=== PATIENT | female | born 1950 | race Caucasian/White ===

== ENCOUNTER 2016-08-16 09:51 | Inpatient (IN) | payer OTHER ==
[~2016-08-16] VITALS: Ht 162.6 cm; Wt 100.0 kg
[~2016-08-16 09:51] MED LIST: Ambien PO; Ascorbic Acid,Ester- PO; CELEBREX200 MG PO; CELEXA40 MG PO; COUMADIN PO; Coumadin dosing per PO; Ecotrin PO; FEOSOL325 MG PO; Feosol PO; LIVALO1 MG PO; SENOKOT S,PE1 TABLET PO; Vicodin,Lortab 5/500 PO; Vicodin,Norco 5/325 PO; [UNRECOGNIZED DRUG - OTHER] PO
[2016-08-16 10:18] LABS: HEMATOCRIT 45.1 % (36.0-46.0); MCHC 31.3 G/DL (30.0-36.0); MCV 92.8 FL (83-99); MEAN PLAT.VOLUME 9.5 uM^3 (9.5-12.4); NRBC (%) 0.8 /100 WBC (0-0); PLATELET COUNT 127 K/uL (156-360); RBC DIS.WIDTH-CV 13.2 % (11.8-14.6); RBC DIS.WIDTH-SD 45.3 % (39-53); RED BLOOD COUNT 4.86 M/uL (3.80-5.20); WHITE BLOOD COUNT 7.2 K/uL (4.1-10.2)
[2016-08-16 10:21] LABS: CHLORIDE 107 mEq/L (99-109); POTASSIUM 4.6 mEq/L (3.7-5.4); SODIUM 141 mEq/L (136-147)
[2016-08-16 10:22] LABS: INTER. NORMALIZED RATIO 1.4; PROTHROMBIN TIME 14.9 (9.2-11.2); PTT 73.1 (25-32)
[2016-08-16 10:23] LABS: GLUCOSE 159 mg/dL (70-99)
[2016-08-16 10:24] LABS: ANION GAP 23 MEQ/L (2-14)
[2016-08-16 10:26] LABS: SERUM ETHYL ALCOHOL < 10 mg/dL
[2016-08-16 10:27] LABS: GFR ESTIMATE (CALCULATED) 30 mL/min/
[2016-08-16 10:28] LABS: UREA NITROGEN (BUN) 32 mg/dL (9-23)
[2016-08-16 10:30] LABS: LIPASE 36 U/L (1.0-51.0)
[2016-08-16 10:45] LABS: TROP-I INTERPRETATION POSITIVE; TROPONIN-I 3.19 ng/mL (0.0-0.30)
[2016-08-16 10:46] LABS: AMYLASE 389 IU/L (1-118)
[2016-08-16 10:50] LABS: CARBOXY HGB 1.9 % (0-5); COMMENTS - BLOOD GASES C+ANA; METHEMOGLOBIN 0.4 % (0-1.5); PCO2 62 mm Hg (35-45); PO2 93 mm Hg (80-100); SITE ALINE; pH < 6.91 (7.35-7.45)
[2016-08-16 10:51] LABS: DEVICE 840 PB; FI02 100 %; MECHANICAL RATE 16 resp/min; MODE AC; PEEP 5 CM/H20; TIDAL VOLUME 450 ML; TOTAL RESP RATE 24 resp/min
[2016-08-16 11:18] LABS: ABS NEUTROPHIL COUNT 2.2; ATYPICAL LYMPHOCYTE 11.5 %; BAND NEUTROPHILS 18.6 % (0-8.0); EOSINOPHIL ABS CT 0; INSTRUMENT ABS NEUTROPHIL CT 4.7 K/uL; LYMPHOCYTES 44.2 % (15.0-45.0); METAMYELOCYTES 2.7 %; MYELOCYTES 4.4 %; NUCLEATED RBC'S 2.7; PLAT.SUFFICIENCY DECREASED; POIKILOCYTOSIS 1+; SEG.NEUTROPHILS 11.5 % (46.0-76.0)
[2016-08-16 11:25] VITALS: BP 119/76
[2016-08-16 12:33] LABS: BASE EXCESS -18.9 mEq/L (-3 to +3); BICARBONATE 11.6 mEq/L (22-26); CARBOXY HGB 0.1 % (0-5); METHEMOGLOBIN 2.1 % (0-1.5)
[2016-08-16 12:35] LABS: BASE EXCESS -17.6 mEq/L (-3 to +3); BICARBONATE 14.3 mEq/L (22-26); CARBOXY HGB 0.1 % (0-5); METHEMOGLOBIN 2.9 % (0-1.5); PCO2 62 mm Hg (35-45)
[2016-08-16 12:38] LABS: PO2 37 mm Hg (80-100); SITE PA
[2016-08-16 12:38] LABS: COMMENTS - BLOOD GASES C+ DREW IN CATH LAB; PCO2 46 mm Hg (35-45); PO2 63 mm Hg (80-100); SITE ARTERIAL DRAW; pH 7.01 (7.35-7.45)
[2016-08-16 12:39] LABS: COMMENTS - BLOOD GASES C+ DREW IN CATH LAB; pH 6.97 (7.35-7.45)
[2016-08-16 14:15] VITALS: BP 121/71
[2016-08-16 14:16] LABS: BASE EXCESS -19.9 mEq/L (-3 to +3); BICARBONATE 11.3 mEq/L (22-26); CARBOXY HGB 0.1 % (0-5); COMMENTS - BLOOD GASES C+; METHEMOGLOBIN 2.5 % (0-1.5); PCO2 49 mm Hg (35-45); PO2 50 mm Hg (80-100); SITE LT FEMORAL ALINE
[2016-08-16 14:17] LABS: DEVICE 840 VENTILATOR; FI02 100 %; MECHANICAL RATE 22 resp/min; MODE AC; PEEP 5 CM/H20; TIDAL VOLUME 500 ML; TOTAL RESP RATE 22 resp/min; pH 6.97 (7.35-7.45)
[2016-08-16 14:54] LABS: BASE EXCESS 7.4 mEq/L (-3 to +3); CARBOXY HGB 0.5 % (0-5); PCO2 91 mm Hg (35-45); PO2 38 mm Hg (80-100)
[2016-08-16 14:55] LABS: BICARBONATE 36.4 mEq/L (22-26); COMMENTS - BLOOD GASES C+; DEVICE AMBU; SITE A LINE; pH 7.21 (7.35-7.45)
[2016-08-16 14:56] LABS: HEMATOCRIT 32.9 % (36.0-46.0); MCH 29.7 PG (29.0-34.0); MCHC 31.6 G/DL (30.0-36.0); MEAN PLAT.VOLUME 9.4 uM^3 (9.5-12.4); NRBC (%) 5.2 /100 WBC (0-0); PLATELET COUNT 115 K/uL (156-360); RBC DIS.WIDTH-CV 13.7 % (11.8-14.6); RBC DIS.WIDTH-SD 46.9 % (39-53); WHITE BLOOD COUNT 6.7 K/uL (4.1-10.2)
[2016-08-16 15:26] LABS: ABS NEUTROPHIL COUNT 1.9; BAND NEUTROPHILS 19.5 % (0-8.0); EOSINOPHIL ABS CT 0; HEMATOLOGY COMMENT 1 OTHER=ABNORMAL LYMPH; INSTRUMENT ABS NEUTROPHIL CT 3.2 K/uL; LYMPHOCYTES 27.4 % (15.0-45.0); MICROCYTOSIS 1+; MYELOCYTES 10.6 %; NUCLEATED RBC'S 16.8; PLAT.SUFFICIENCY DECREASED; SEG.NEUTROPHILS 8.9 % (46.0-76.0); SMUDGE CELLS 38.1
[2016-08-16 15:43] LABS: TROP-I INTERPRETATION POSITIVE; TROPONIN-I 5.47 ng/mL (0.0-0.30)
[2016-08-16 15:55] LABS: PROTHROMBIN TIME 93.5 (9.2-11.2)
[2016-08-16 15:56] LABS: INTER. NORMALIZED RATIO 8.6; PTT > 150.0 (25-32)
[2016-08-16 17:18] LABS: GFR ESTIMATE (CALCULATED) 32 mL/min/; SODIUM 160 MEQ/L (136-147); UREA NITROGEN (BUN) 31 mg/dL (9-23)
[2016-08-16 17:19] LABS: AMYLASE 384 IU/L (1-118); CHLORIDE 108 MEQ/L (99-109); LIPASE 69 U/L (1.0-51.0); MAGNESIUM 2.6 mg/dl (1.3-2.7)
[2016-08-16 17:20] LABS: GLUCOSE < 10 mg/dL (70-99)
== END 2016-08-16 15:11 | DRG 270 ==
LOC: EME → EDBD 09:51 → EME 09:51 → CATH 11:58 → 4WEST 13:09 → 2SOUTH 13:09 → 4WEST 13:28
PROVIDERS: Emergency Medicine; Internal Medicine Cardiovascular Disease; Internal Medicine Nephrology
DX: R57.0 Cardiogenic shock (principal); I21.4 Non-ST elevation (NSTEMI) myocardial infarction; J96.01 Acute respiratory failure with hypoxia; K55.059 Acute (reversible) ischemia of intestine, part and extent unspecified; K92.2 Gastrointestinal hemorrhage, unspecified; J69.0 Pneumonitis due to inhalation of food and vomit; G93.40 Encephalopathy, unspecified; R40.20 Unspecified coma; N17.9 Acute kidney failure, unspecified; E87.2 Acidosis; K56.7 Ileus, unspecified; M79.A3 Nontraumatic compartment syndrome of abdomen; I42.9 Cardiomyopathy, unspecified; I46.9 Cardiac arrest, cause unspecified; G89.29 Other chronic pain; F32.9 Major depressive disorder, single episode, unspecified; K59.00 Constipation, unspecified; Z66 Do not resuscitate; Z88.5 Allergy status to narcotic agent
CPT/HCPCS: 36600; 71010; 71275; 74177; 80048; 80048 91; 81003; 82150; 82330; 82550 91; 82553; 82570; 82803; 83605; 83690; 83735; 84100; 84156; 84300; 84484; 85025; 85025 91; 85347; 85610; 85730; 86850; 86900; 86901; 87040; 87070; 87076; 87086; 87185; 87205; 87641; 87801; 92950; 93005; 94002; 99281; 99285; C1725; C1769; C1887; C1894; G0480; J0171; J0461; J1644; J7050